=== PATIENT | male | born 1940 | race Caucasian/White ===

== ENCOUNTER 2017-10-12 09:29 | Inpatient (IN) | payer MEDICARE, OTHER ==
[2017-10-12] MEDS ORDERED: Ketorolac INJ* 30 MG/ML 1 ML VIAL IV PUSH ONE (10:19)
[2017-10-12] MEDS ORDERED: Morphine INJ* 4 MG/ML 1 ML CARPUJECT IV ONE ×2 (10:19→11:12)
[2017-10-12] MEDS ORDERED: Ondansetron INJ* 2 MG/ML VIAL ONE (10:23)
--- NOTE | 2017-10-12 10:26 | RAD ---
Indication: LEFT hip pain without recent injury. Prosthetic LEFT hip. Remote traumatic injury. Comparison: September 11, 2011 CT. Technique: AP pelvis and AP and frog-leg lateral views LEFT hip. Report: The LEFT hip prosthesis appears normally located. No periprosthetic fracture or stigmata of loosening evident. Innumerable punctate metallic densities are noted at the level of the hip joint and surrounding soft tissues suspicious for mild debris secondary to prosthesis wear. Lumbar sacral spine degenerative spondylosis and facet joint osteoarthritis noted. Pelvic phleboliths and prostatic calcifications noted. Unremarkable soft tissue contours accounting for body habitus. IMPRESSION: Punctate metallic densities at level of the prosthetic LEFT hip and surrounding soft tissues suspicious for abnormal prosthesis wear.
[2017-10-12] MEDS ORDERED: Ondansetron INJ* 2 MG/ML VIAL IV ONE (10:32)
[2017-10-12 10:58] LABS: ABS Basophils 0 10^3/ul (0-0.2); ABS Eosinophils 0 10^3/ul (0-0.6); ABS Lymphocytes 3.6 10^3/ul (1.0-4.8); ABS Monocytes 2.1 10^3/ul (0-0.8); ABS Neutrophils 12.2 10^3/ul (1.5-7.7); ABS Nucleated RBC 0.02 10^3/ul; Eosinophil % 0.1 % (0-6); Hematocrit 38 % (42-52); Hemoglobin 12.8 g/dl (14.0-18.0); Lymphocyte % 20.3 % (25-47); Mean Corpuscular HGB Conc 34 g/dl (31-36); Mean Corpuscular Hemoglobin 31 pg (27-31); Mean Corpuscular Volume 91 fL (80-94); Mean Platelet Volume 9 um3 (7.4-10.4); Nucleated Red Blood Cells % 0.1; Platelet Count 190 10^3/ul (150-450); Red Blood Count 4.17 10^6/ul (4.0-5.4); Red Cell Distribution Width 13 % (10.5-15)
[2017-10-12 11:19] LABS: EGFR Non-African American 67.4 (>60)
[2017-10-12] MEDS ORDERED: Piperacillin/Tazobac ADVAN(*) 3.375 GM in NS 0.9% 100 ML* 100 ML IVPB ONE (11:58)
[2017-10-12] MEDS ORDERED: Vancomycin(*) 1,750 MG in NS 0.9% 250 ML* 250 ML IVPB ONE (11:58)
[2017-10-12] MEDS ORDERED: NS 0.9% 1000 ML* 1,000 ML IV ONE (12:15)
[2017-10-12] MEDS ORDERED: NS 0.9% 250 ML* 250 ML ONE (12:52)
--- NOTE | 2017-10-12 12:59 | ED ---
Edvin Hall Gabriel, scribed for Evan Schneider MD on 10/12/17 at 1020 . Lower Extremity - HPI Summary HPI Summary: This patient is a 77 year old M presenting to [facility] accompanied by his with a chief complaint of left hip pain since 09/11/17. The patient rates the pain 9/10 in severity. Symptoms aggravated by ambulation. Patient denies cough, abd pain, n/v/d, and dysuria. 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 Patients reports that two days ago he had chills and a fever of 102 two days ago with the fever recently resolving. Patient denies any liver issues. - History of Current Complaint Chief Complaint: EDExtremityLower Stated Complaint: HIP PAIN Time Seen by Provider: 10/12/17 10:09 Hx Obtained From: Patient, Family/Sec Accountant - Mechanism Of Injury: Unknown Onset of Pain: Days - 1 Onset/Duration: Still Present Severity Initially: Moderate Severity Currently: Moderate Pain Intensity: 9 Pain Scale Used: 0-10 Numeric Timing: Constant Associated Signs And Symptoms: Positive: Negative - cough, abd pain, n/v/d, and dysuria Able to Bear Weight: Yes - Allergies/Home Medications Allergies/Adverse Reactions: Allergies Allergy/AdvReac Type Severity Reaction Status Date / Time No Known Allergies Allergy Unverified 02/14/13 14:03 PMH/Surg Hx/FS Hx/Imm Hx Previously Healthy: No Endocrine/Hematology History: Denies: Hx Diabetes, Hx Thyroid Disease Cardiovascular History: Reports: Hx Hypercholesterolemia, Hx Hypertension Respiratory History: Denies: Hx Asthma, Hx Chronic Obstructive Pulmonary Disease (COPD) GI History: Reports: Hx Gastroesophageal Reflux Disease Denies: Hx Ulcer History: Reports: Hx Benign Prostatic Hyperplasia Psychiatric History: Reports: Hx Depression - Surgical History Surgery Procedure, Year, and Place: fractured hip and pelvis, pins and screws Infectious Disease History: No Infectious Disease History: Denies: Hx Hepatitis, Hx Human Immunodeficiency Virus (HIV), History Other Infectious Disease, Traveled Outside the [place] in Last 30 Days - Family History Known Family History: Positive: Hypertension - Social History Lives: With Family Alcohol Use: None Hx Substance Use: No Substance Use Type: Reports: None Hx Tobacco Use: Yes Smoking Status (MU): Former Smoker Have You Smoked in the Last Year: No Review of Systems Negative: Abdominal Pain, Vomiting, Diarrhea, Nausea Negative: dysuria Positive: Other - pain in right hip All Other Systems Reviewed And Are Negative: Yes Physical Exam - Summary Physical Exam Summary: Appearance: Patient appears jaundice with no scleral icterus, mild pain distress Skin: warm, dry, reflects adequate perfusion Head/face: normal Eyes: EOMI, AARON ENT: normal Neck: supple, non-tender Respiratory: CTA, breath sounds present Cardiovascular: RRR, pulses symmetrical Abdomen: non-tender, soft Bowel: present Musculoskeletal: patient has left hip with flexion of lateral hip pain but no pain with log roll Neuro: normal, sensory motor intact, A&Ox3 Triage Information Reviewed: Yes Vital Signs On Initial Exam: Initial Vitals Temp Pulse Resp BP Pulse Ox 97.7 F 102 18 116/64 95 10/12/17 09:30 10/12/17 09:30 10/12/17 09:30 10/12/17 09:30 10/12/17 09:30 Vital Signs Reviewed: Yes - [place] Coma Scale Coma Scale Total: 15 Diagnostics - Vital Signs Vital Signs Temp Pulse Resp BP Pulse Ox 10/12/17 09:43 90 99 10/12/17 09:41 154/70 10/12/17 09:30 97.7 F 102 18 116/64 95 - Laboratory Lab Results: Lab Results 10/12/17 10/12/17 10/12/17 Range/Units 10:40 10:40 10:40 WBC 18.0 H (3.5-10.8) 10^3/ul RBC 4.17 (4.0-5.4) 10^6/ul Hgb 12.8 L (14.0-18.0) g/dl Hct 38 L (42-52) % MCV 91 (80-94) fL MCH 31 (27-31) pg MCHC 34 (31-36) g/dl RDW 13 (10.5-15) % Plt Count 190 (150-450) 10^3/ul MPV 9 (7.4-10.4) um3 Neut % (Auto) 68.0 (38-83) % Lymph % (Auto) 20.3 L (25-47) % [place] % (Auto) 11.5 H (1-9) % Eos % (Auto) 0.1 (0-6) % Baso % (Auto) 0.1 (0-2) % Absolute Neuts (auto) 12.2 H (1.5-7.7) 10^3/ul Absolute Lymphs (auto) 3.6 (1.0-4.8) 10^3/ul Absolute Monos (auto) 2.1 H (0-0.8) 10^3/ul Absolute Eos (auto) 0 (0-0.6) 10^3/ul Absolute Basos (auto) 0 (0-0.2) 10^3/ul Absolute Nucleated RBC 0.02 10^3/ul Nucleated RBC % 0.1 Sodium 134 (133-145) mmol/L Potassium 4.0 (3.5-5.0) mmol/L Chloride 101 (101-111) mmol/L Carbon Dioxide 28 (22-32) mmol/L Anion Gap 5 (2-11) mmol/L BUN 17 (6-24) mg/dL Creatinine 1.07 (0.67-1.17) mg/dL Est GFR ( Amer) 86.6 (>60) Est GFR (Non-Af Amer) 67.4 (>60) BUN/Creatinine Ratio 15.9 (8-20) Glucose 122 H (70-100) mg/dL Lactic Acid 1.1 (0.5-2.0) mmol/L Calcium 9.8 (8.6-10.3) mg/dL Total Bilirubin 0.80 (0.2-1.0) mg/dL AST 17 (13-39) U/L ALT 15 (7-52) U/L Alkaline Phosphatase 73 (34-104) U/L C-Reactive Protein 186.60 H (< 5.00) mg/L Total Protein 7.1 (6.4-8.9) g/dL Albumin 3.7 (3.2-5.2) g/dL Globulin 3.4 (2-4) g/dL Albumin/Globulin Ratio 1.1 (1-3) Lipase 22 (11.0-82.0) U/L Result Diagrams: 10/12/17 10:40 10/12/17 10:40 Lab Statement: Any lab studies that have been ordered have been reviewed, and results considered in the medical decision making process. - Radiology Hip/Pelvis Xray Radiology Interpretation Completed By: Radiologist - Punctate metallic densities at level of the prosthetic LEFT hip and surrounding soft tissues suspicious for abnormal prosthesis wear. ED physician has reviewed this radiology report. Re-Evaluation - Re-Evaluation First Eval Change: Unchanged - persistent pain with any attempted movement despite several rounds of pain meds. Lower Extremity Course/Dx - Course Course Of Treatment: Pt with atraumatic pain L hip (with prosthesis). High WBC and CRP. Possible septic prosthetic joint. D/W Ortho -- he would like IR to aspirate. D/W interventional radiologist who will attempt aspiration under US guidance. Nl lactate. No fever. Prophylactic abx. No abnl of vitals currently. IVF and abx. Admit for further to hospitalist service. - Diagnoses Provider Diagnoses: Left hip pain, Septic arthritis of hip, Infected prosthetic hip - Critical Care Time Critical Care Time: 30-74 min - excludes separately billable procedures. Includes complex medical decision making and multiple consults. Discharge - Discharge Plan Condition: Guarded Disposition: ADMITTED TO [facility] Referrals: Fred Esquivel MD [Primary Care Provider] - The documentation as recorded by the Edvin parra Gabriel accurately reflects the service I personally performed and the decisions made by , Evan Schneider MD.
--- NOTE | 2017-10-12 13:00 | RAD ---
Indication: LEFT hip and femur pain. Prosthesis. Comparison: LEFT hip exam of the same date. Technique: AP and lateral views LEFT femur. Report: LEFT total hip prosthesis in place with small metallic particles at the level of the joint and surrounding soft tissues as described in the dedicated hip exam of the same date. No periprosthetic fracture or stigmata of loosening of the femoral stem. No suspicious osseous lesion evident. Mild osteoarthritis at the knee. Peripheral vascular calcifications. IMPRESSION: Negative for LEFT femur fracture or suspicious focal osseous lesion. As noted in the dedicated hip exam of the same date punctate metallic particles at the hip joint and surrounding soft tissues favor degeneration of the prosthesis.
[2017-10-12] MEDS ORDERED: Vancomycin(*) 1,750 MG in NS 0.9% 500 ML* 500 ML IVPB ONE (13:30)
--- NOTE | 2017-10-12 15:55 | RAD ---
CPT II Codes: 6100F INDICATION: Left hip pain COMPARISON: Same day radiograph of the left hip The benefits and risks of procedure explained to the patient and the patient signed informed consent. Multiple images of the left prosthetic hip were obtained. There is no large discernible fluid collection within the prostatic left hip capsule. The patient was prepped and draped in the usual sterile fashion. The skin and tissue overlying the fluid collection were anesthetized with 1% lidocaine. Percutaneously, a needle was advanced until it abutted the prosthetic femoral neck. No fluid could be aspirated. Approximately 5 mL of normal saline was gently injected into the joint space and rapidly aspirated back out. A total of 3 mL of turbid fluid was recovered. The needle was removed and the specimen was labeled and packaged and sent to the laboratory. The post procedure ultrasound demonstrates no evidence for hematoma. The patient tolerated procedure well without incident. IMPRESSION: 1. No sonographic evidence of a left sided joint effusion. 2. After needle aspiration yielded no joint fluid, sterile normal saline was injected in an approximately 3 mL's was rapidly aspirated back out. This mildly turbid fluid was sent to the laboratory for analysis.
[2017-10-12] MEDS ORDERED: Al Hydrox/Mg Hydrox/Simet LIQ* 30 ML UDC PO PRN (16:26)
[2017-10-12] MEDS ORDERED: Ondansetron INJ* 2 MG/ML VIAL IV PRN (16:26)
[2017-10-12] MEDS ORDERED: Acetaminophen TAB* 325 MG PO PRN (16:26)
[2017-10-12] MEDS: HYDROcodone/ACETAMIN 5-325 MG* 1 TAB PO PRN ×2 (17:09→21:54)
--- NOTE | 2017-10-12 17:15 | RAD ---
INDICATION: Fever. COMPARISON: There are no prior studies available for comparison. TECHNIQUE: AP and lateral views of the chest were obtained. FINDINGS: The heart is within normal limits in size. Mediastinal and hilar contours appear within normal limits. There are minimal linear densities at the left lung base most consistent with atelectasis. The lungs are otherwise clear. No pleural effusion is seen. IMPRESSION: NO EVIDENCE FOR ACUTE FINDING.
[2017-10-12] MEDS: cefTRIAXone(*) 2 GM in NS 0.9% 100 ML* 100 ML IVPB SCH (17:30)
[2017-10-12] MEDS: NS 0.9% 1000 ML* 1,000 ML IV SCH (18:13)
[2017-10-12] MEDS ORDERED: Vancomycin per Pharmacy* NOTE FOLLOW UP PRN (20:34)
[2017-10-12] MEDS: Omeprazole CAP* 20 MG PO SCH (20:42)
[2017-10-12] MEDS: Atorvastatin* 80 MG TAB PO SCH (20:42)
[2017-10-12] MEDS ORDERED: Heparin VIAL(*) 5000 UNITS/ML VIAL (FIVE THOUSAND) SUBCUT SCH (22:00)
--- NOTE | 2017-10-12 22:17 | HP ---
CC: Dr. Esquivel * HISTORY AND PHYSICAL: DATE OF ADMISSION: 10/12/17 PROVIDER: Kavitha Hussein NP ATTENDING PHYSICIAN WHILE IN THE HOSPITAL: Dr. Serge Blanchard * (report dictated by Kavitha Hussein NP). CHIEF COMPLAINT: 1. Fever. 2. Left hip pain. HISTORY OF PRESENT ILLNESS: Mr. Rodriguez is a 77-year-old male that presented to the emergency room with a history of depression, hypertension, GERD, and high cholesterol. He also is status post left hip replacement in 2010 and cardiac stent was placed in 2008 and he has a history of back surgeries in 1979. He came in with a two day history of fever and progressively increasing left hip pain with body aches. He reports that fevers at home were between 101 and 102. He states that on Monday, he was feeling fine. He had celebrated [place] with his family without any problems. On Monday night, he came home and had a spell where he was shaking and had chills. He developed left hip pain Monday night and over Monday and Monday, the left hip pain progressively got worse. Initially, he is an active male. He is able to walk without any assistance. On Monday, he was using a cane to walk and by Monday, he was walking with a wheeled walker due to the increased left hip. He does state that on Monday, he did fall on a padded carpet. Denied any injuries. Denied loss of consciousness. He does report that the left hip pain is an 8 on a scale of 10. It is worse with walking and movement. He states that the pain is sharp. He denies any other complaints. He denies nausea, vomiting, or diarrhea. Denies any abdominal pain. Denies cough or shortness of breath. He does report fever and chills. He reports that he has chronic problems with urination and does report some increased frequency, but denies any other symptoms. He denies any sensory loss or weakness. Denies any visual complaints. He does have chronic difficulty swallowing at times where he feels food get stuck in his throat. He has had EGDs in the past which he says that he had a stricture cut and has not followed up since. He denies any rashes or lesions. Denies any recent sick contacts. No fevers were documented in the emergency room. We were asked to evaluate the patient for admission due to fever, left hip pain, and leukocytosis. In the emergency room, routine lab work was drawn and he was found to have leukocytosis with a white count of 18,000. He did receive Toradol 30 mg and morphine 4 mg x2 for pain without any relief. He also was started on vancomycin. His first dose was 1750 mg and he also received a dose of Zosyn in the emergency room. Blood cultures and urine are pending. PAST MEDICAL HISTORY: Significant for: 1. High cholesterol. 2. Depression. 3. Hypertension. 4. GERD. 5. He has a history of shingles, which he said was in the groin area several years ago. 6. Prostate enlargement. PAST SURGICAL HISTORY: 1. Back surgery in 1979. 2. Left hip surgery in 2010. 3. Cardiac stents in 2008. MEDICATIONS: Home medications include: 1. Ramipril 5 mg. 2. Aspirin 81 mg p.o. daily. 3. Lipitor 80 mg p.o. daily. 4. Omeprazole 20 mg b.i.d. 5. Multivitamin. 7. Magnesium, calcium and zinc one tablet p.o. daily. 8. Glucosamine 2000 mg p.o. b.i.d. 9. Gabapentin 600 mg p.o. daily. 10. Flomax 0.4 p.o. daily. 11. Proscar 5 mg p.o. daily. 12. Sertraline 50 mg p.o. daily. FAMILY HISTORY: Father and three brothers and his sister are all with cardiac disease. Denies any family history of diabetes. Cancer, mother had stomach cancer. SOCIAL HISTORY: The patient is a former smoker. He quit approximately 30 years ago. Prior to that, he smoked half a pack to pack a day for approximately 30 years. He denies any alcohol use. Denies drug use. He is retired. He currently lives with his pit shoveler of 39 years, Barbara and surrogate decision maker will be his pit shoveler, Barbara Mathew and her phone number is [phone]. REVIEW OF SYSTEMS: There is no documented fever. He denies any significant weight change. There has been no double vision, no ear discharge. Denies any rhinorrhea. Denies sore throat. Denies any chest pain. Denies any shortness of breath, cough, or congestion. Denies any nausea, vomiting, or diarrhea. Denies any abdominal pain. He does report chronic issue with urinary frequency and difficulty urinating. Denies any seizures. Denies loss of consciousness. Denies any pruritus or skin ulcerations. He does report that he does have difficulties swallowing that is a chronic problem for him. He has had EGDs in the past and states that they did cut his throat to improve his swallowing. He has not had a followup since. He does report that he has had some muscle and joint aches over the past two days. Denies any recent issues with anxiety or depression. Review of 14 systems was completed and all others were negative. PHYSICAL EXAMINATION GENERAL: At this time, Mr. Rodriguez is a 77-year-old male patient, he appears comfortable, lying in the bed. He does not appear to be in any acute distress. VITAL SIGNS: Blood pressure was 151/71, pulse 91, respirations 18, O2 sat 98% on room air, temperature oral 98.8. HEENT: Head is atraumatic, normocephalic. Eyes: EOMs are intact. Sclerae are anicteric, not pale. Oral mucosa appear moist. NECK: Supple. LUNGS: Clear to auscultation bilaterally. CARDIAC: Heart sounds, S1, S2 is regular rate and rhythm. There are no murmurs , rubs, or gallops. ABDOMEN: Soft and nontender. Bowel sounds are present x4. EXTREMITIES: Pulses are +2 throughout. He is moving all four extremities with a strength 5/5. Left hip was palpated. There is no point tenderness or SI joint tenderness noted to the left hip. Femoral pulses positive. NEUROLOGIC: He is awake and alert and oriented x3. Speech is clear. There is no focal deficits. SKIN: Intact. There are no rashes or lesions noted. DIAGNOSTIC STUDIES/LAB DATA: WBCs are 18.0, hemoglobin is 12.8, hematocrit is 38, platelet count was 190. Sodium was 134, potassium 4.0, chloride 101, carbon dioxide 28, BUN is 17, creatinine 1.07, glucose was 122, lactic acid was 1.1, calcium 9.8. AST 17, ALT 15, alkaline phos was 73. C-reactive protein was 186.60 and lipase was 22. Chest x-ray was done and is pending at this time. Left femur x-ray, negative for left femur fracture or suspicious focal osseous lesion. Hip and pelvis x- ray, punctate metallic densities at the level of the prosthetic left hip and surrounding soft tissues suspicious for abnormal prosthesis wear. Left hip prosthesis appears normally located and there is no periprosthetic fracture or stigmata of loosening evident. He had a joint aspiration of the left hip joint. Aspirate cultures are pending at this time. ASSESSMENT AND PLAN: Mr. Rodriguez is a 77-year-old male that presented to the emergency room today after two-day history of increased and progressively worsening left hip pain accompanied by fever. We were asked to evaluate because of the fever and increased left hip pain. He will be admitted to the hospital for: 1. Leukocytosis. I suspect that this could be related to a left hip joint infection. At this time, joint aspirate cultures are pending. We will also rule out other sources of infection. A chest x-ray is pending. I have ordered a flu swab. Blood cultures are also pending. Urine culture is pending. 2. Suspect septic joint. At this time, joint aspiration from the left hip culture is pending. We will monitor his vital signs. We will continue to trend his CBC and monitor his white count. I will start him on ceftriaxone 2 g IV q.[address] hours[address] I [address] also place him on vancomycin as per pharmacy dosing. At this time, I think it is reasonable to also check a Lyme titer to rule out Lyme' s disease. Orthopedic consult was initiated, spoke to Celina Belle. Will wait for joint fluid culture. 3. Hypertension. We will continue him on his ramipril. 4. Hyperlipidemia. We will continue him on his Lipitor 80 mg. 5. Gastroesophageal reflux disease. We will continue him on omeprazole 20 mg p.o. b.i.d. 6. Enlarged prostate. We will continue him on his Proscar and Flomax. 7. Depression. We will continue him on his Zoloft. 8. DVT prophylaxis. He will be placed on heparin subcu. 9. Code status. He is a full code. 10. Fluids, electrolytes, and nutrition. We will place him on a heart healthy diet. TIME SPENT: Time spent on this admission was approximately 60 minutes, greater than half the time was spent [id number] with the patient obtaining history and physical, the other half of the time was spent going over the plan of care and implementing the plan of care. I have discussed this plan of care with my attending, Dr. Serge Blanchard and he is in agreement with my plan. KAVITHA HUSSEIN, ROOMING HOUSE OPERATOR [id number]/[facility] #: [id number] KENRICK
--- NOTE | 2017-10-13 01:25 | CONS ---
CONSULTATION REPORT: DATE OF CONSULT: 10/12/17 PROVIDER: Dr. Fred Painter. HISTORY OF PRESENT ILLNESS: The patient is a 77-year-old male who present to [facility] ED on 10/12/17 accompanied by his with complaint of left hip pain since 09/11/17. At its most severe, pain is a 9/10 in severity, though currently he is feeling quite comfortable when he does not move, sometimes aggravated by passive movement of his left lower extremity as well as ambulation. The patient denies any cough, chest pain, shortness of breath, abdominal upset, nausea, vomiting, diarrhea, dysuria, skin lesions. 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 In the past 4 days, the patient has developed such severe pain he has needed to use a crutch to walk and he did use a walker to come into the emergency room today. He has had chills and a fever as high as 102. His previous hip surgery was done by Dr. Mckay at [facility]. The patient has no sick contacts. PAST MEDICAL HISTORY: Hyperlipidemia, hypertension, GERD, BPH, depression. PAST SURGICAL HISTORY: Includes fractured hip and pelvis with hinge and screws. SOCIAL HISTORY: The patient does not use alcohol. He does not use drugs. He is a former smoker. REVIEW OF SYSTEMS: General: History of fevers, chills. HEENT: Denies headache, changes in vision, changes in hearing. Cardiac: Denies chest pain, irregular heart beats, history of heart attack. Respiratory: Denies shortness of breath, cough. GI: Denies nausea, vomiting, diarrhea, or abdominal pain. : Denies dysuria. Musculoskeletal: Confirms left hip pain. Denies any other musculoskeletal pains. Neuro: Denies any numbness or tingling of left lower extremity. Skin: No open lesions, wounds, or bruising. PHYSICAL EXAM: General: The patient is in no acute distress. He is calm and cooperative. Vital Signs: Temp currently 98.8, pulse 91, respiratory rate 18, oxygen saturation 98, blood pressure 151/71. HEENT: Normocephalic, atraumatic. Extraocular movements are intact. Hearing is grossly normal. Respiratory: Lungs are clear to auscultation bilaterally. Cardiovascular: S1 , S2. Abdomen: Soft, nontender. No obvious masses. Musculoskeletal: The patient denies pain with passive or active flexion and extension of the hip. He has no pain with log roll. He confirms pain into the left lateral hip with both internal and external rotation. He has no lumbar tenderness. Neuro: Dorsiflexion and plantarflexion intact. Sensation intact distally. Skin: No open lesions. No bruising. DIAGNOSTIC STUDIES/LAB DATA: White blood cell count 18.0, hemoglobin 12.8, hematocrit 38. Lactic acid 1.1, CRP 186.6. Left hip x-ray showed punctate metallic densities at the level of prosthetic left hip and surrounding soft tissue suspicious for abnormal prosthesis wear. ASSESSMENT: Atraumatic left hip pain with prosthesis, concern for septic joint. PLAN: Aspiration under ultrasound guidance was a dry tap, saline was infused and will await culture results. Patient will be NPO and Dr. Painter will evaluate for need for surgical intervention 10/13/17. ADRIANNA LOWE [id number]/[place] #: [id number] MTDCintia
[2017-10-13 01:37] LABS: Urine Appearance Cloudy; Urine Blood 2+ (Negative); Urine Color Amber; Urine Ketones Negative (Negative); Urine Protein 2+(100 mg/dL) (Negative); Urine Specific Gravity 1.023 (1.010-1.030); Urine Urobilinogen Negative (Negative)
[2017-10-13] MEDS: Heparin VIAL(*) 5000 UNITS/ML VIAL (FIVE THOUSAND) SUBCUT SCH ×3 (05:30→22:06)
[2017-10-13] MEDS ORDERED: Vancomycin(*) 1,000 MG in D5W 250 ML BAG* 250 ML IVPB SCH (06:00)
[2017-10-13 06:15] LABS: ABS Basophils 0.1 10^3/ul (0-0.2); ABS Eosinophils 0.1 10^3/ul (0-0.6); ABS Lymphocytes 3.1 10^3/ul (1.0-4.8); ABS Monocytes 1.3 10^3/ul (0-0.8); ABS Neutrophils 9.5 10^3/ul (1.5-7.7); ABS Nucleated RBC 0 10^3/ul; Eosinophil % 0.7 % (0-6); Hematocrit 32 % (42-52); Hemoglobin 10.8 g/dl (14.0-18.0); Lymphocyte % 21.9 % (25-47); Mean Corpuscular HGB Conc 33 g/dl (31-36); Mean Corpuscular Hemoglobin 31 pg (27-31); Mean Corpuscular Volume 91 fL (80-94); Mean Platelet Volume 9 um3 (7.4-10.4); Nucleated Red Blood Cells % 0; Platelet Count 153 10^3/ul (150-450); Red Blood Count 3.55 10^6/ul (4.0-5.4); Red Cell Distribution Width 13 % (10.5-15); White Blood Count 14.1 10^3/ul (3.5-10.8)
[2017-10-13 06:32] LABS: EGFR Non-African American 67.4 (>60)
[2017-10-13] MEDS: Tamsulosin CAP* 0.4 MG PO SCH (10:19)
[2017-10-13] MEDS: Ramipril CAP* 5 MG PO SCH (10:19)
[2017-10-13] MEDS: Omeprazole CAP* 20 MG PO SCH ×2 (10:19→21:11)
[2017-10-13] MEDS: Atorvastatin* 80 MG TAB PO SCH (10:19)
[2017-10-13] MEDS: Sertraline* 50 MG TAB PO SCH (10:19)
[2017-10-13] MEDS: Finasteride TAB* 5 MG PO SCH (10:19)
--- NOTE | 2017-10-13 10:40 | PN ---
Progress Note - Progress Note Date of Service: 10/13/17 SOAP: Subjective: 77 y/o male s/p L hip traumatic CRISTAL 2010 with hip pain. Awaiting records from [facility] for possible poly exchange, washout due to deterioration of previous CRISTAL. Patient states pain decreased, better with lying still, however increased with movements. VSS afebrile overnight. hungry. Objective: General- Well appearing, NAD AO, resting in bed comfortably MSK- pain with flex L hip to >30 degrees, good muscle tone throughout L LE, PT 2+ b/l, neg homans b/l, + DF/PF, sensation grossly intact, no tenderness with moderate palpation around hip. Vital Signs Temp 99.1 F 10/13/17 07:31 Pulse 73 10/13/17 07:31 Resp 18 10/13/17 07:31 BP 131/58 10/13/17 07:31 Pulse Ox 94 10/13/17 07:31 Intake & Output 10/12/17 10/13/17 10/13/17 18:59 06:59 18:59 Intake Total 1570 787 200 Output Total 700 800 Balance 1570 87 -600 Weight 87.679 kg Intake: IV Fluids 1100 787 ABX - VANCOMYCIN 337 normal saline 450 Oral 470 0 200 Output: Urine 700 800 Assessment: 77 y/o male s/p L hip traumatic CRISTAL 2010 with hip pain, likely hardware malfunction. Plan: - Obtain records from [facility]- once available can determine if products are in- house or must be obtained. Surgery 08/[address] Mckay. - Heart healthy diet - Continue NWB L LE - Discuss with Dr. Mendez Active Medications Generic Name Dose Route Start Last Admin Trade Name Freq PRN Reason Stop Dose Admin Acetaminophen 650 mg 10/12/17 16:26 Tylenol Tab* PO Q4H PRN FEVER/PAIN Hydrocodone Bitart/Acetaminophen 1 tab 10/12/17 16:46 10/12/17 21:54 Lucas 5-325 Tab* PO 1 tab Q4H PRN Administration PAIN Al Hydrox/Mg Hydrox/Simethicone 30 ml 10/12/17 16:26 Maalox Plus* PO Q6H PRN INDIGESTION Atorvastatin Calcium 80 mg 10/12/17 21:00 10/13/17 10:19 Lipitor* PO 80 mg DAILY NAILA Administration Finasteride 5 mg 10/13/17 09:00 10/13/17 10:19 Proscar Tab* PO 5 mg DAILY NAILA Administration Heparin Sodium (Porcine) 5,000 units 10/12/17 22:14 10/13/17 13:22 Heparin Vial(*) SUBCUT Not Given Q8HR NAILA Sodium Chloride 1,000 mls @ 75 mls/hr 10/12/17 16:30 10/12/17 18:13 Ns 0.9% 1000 Ml* IV 75 mls/hr PER RATE NAILA Administration Ceftriaxone Sodium 2 gm/ 100 mls @ 200 mls/hr 10/12/17 17:00 10/12/17 17:30 Sodium Chloride IVPB 200 mls/hr Q24H NAILA Administration Vancomycin HCl 1,000 mg/ 250 mls @ 166.667 mls/hr 10/13/17 06:00 10/13/17 05: 54 Dextrose IVPB 166.667 mls/hr Q12H NAILA Administration Omeprazole 20 mg 10/12/17 21:00 10/13/17 10:19 Prilosec Cap* PO 20 mg BID NAILA Administration Ondansetron HCl 4 mg 10/12/17 16:26 Zofran Inj* IV Q4H PRN NAUSEA/VOMITING Pharmacy Consult 1 note 10/12/17 20:34 Vancomycin Per Pharmacy* FOLLOW UP . PRN PER PROTOCOL Pharmacy Profile Note 1 note 10/14/17 05:30 Vancomycin Trough Check FOLLOW UP 10/14/17 05:31 0530 ONE Ramipril 5 mg 10/13/17 09:00 10/13/17 10:19 Altace Cap* PO 5 mg DAILY NAILA Administration Sertraline HCl 50 mg 10/13/17 09:00 10/13/17 10:19 Zoloft* PO 50 mg DAILY NAILA Administration Tamsulosin HCl 0.4 mg 10/13/17 09:00 10/13/17 10:19 Flomax Cap* PO 0.4 mg DAILY NAILA Administration <Karen Zhou - Last Filed: 10/13/17 14:34> - Progress Note SOAP: Subjective: Patient continues to describe intermittent left hip pain. He has not ambulated in days to test comfort level with ambulation. Hip joint aspiration done yesterday by IR, but sample has no gram stain or culture to this point. I called the microbiology lab and they will have gram stain in an hour. Echo was negative for vegetations. We obtained op note from 2010 from [facility] that details a complex left CRISTAL for fracture with a liner cemented into a trabecular metal cup with screws. This would significantly complicate liner exchange, which is a typical component of I &D of acute prosthetic joint infections. Objective: NAD. Comfortabl-appearing. LLE: warm left hip, NVID, PROM 100 flexion, 15 of external and internal rotation. Only mild intermittent pain with PROM. Patient points to lateral hip area as location of pain. Microbiology 10/12/17 10:40 Blood Venous Aerobic Blood Culture - Preliminary 10/12/17 10:40 Blood Venous Anaerobic Blood Culture - Preliminary Strep Agalactiae - (Group B) Selected Entries 10/13/17 10/13/17 17:43 19:35 Temperature 101.4 F 98.4 F Pulse Rate 81 Respiratory 18 Rate Blood Pressure 120/58 (mmHg) O2 Sat by Pulse 91 Oximetry Laboratory Tests 10/12/17 10/13/17 10/13/17 10:40 01:15 06:07 WBC 18.0 H 14.1 H Urine Nitrate Negative Ur Leukocyte Esterase 3+ H Urine WBC (Auto) 3+(>20/hpf) H Assessment: HD 2 left hip pain, bacteremia with gram negative organism, presumptive L CRISTAL infection UTI History 2010 complex left CRISTAL for fracture with a cemented liner Plan: - Await gram stain and culture results of aspirate from yesterday - NPO p midnight for possible I&D tomorrow morning - Will discuss with colleagues possibility of I&D without liner exchange given the cemented liner. If it is decided that liner must be exchanged we would likely transfer to [place] - Repeat UA and culture tomorrow morning <Darrin Mendez - Last Filed: 10/13/17 22:09>
--- NOTE | 2017-10-13 11:34 | PN ---
Subjective Date of Service: 10/13/17 Interval History: Mr. Rodriguez states that he is feeling better today. States that he is able to raise his leg higher than yesterday put does still reproduce pain with range of motion. Denies fever or chills, Denies nausea, vomiting or diarrhea. Denies abd pain. Denies urinary symptoms. Denies shortness of breath or cough. Family History: Unchanged from Admission Social History: Unchanged from Admission Past Medical History: Unchanged from Admission Objective Active Medications: Acetaminophen (Tylenol Tab*) 650 mg PO Q4H PRN PRN Reason: FEVER/PAIN Hydrocodone Bitart/Acetaminophen ([place] 5-325 Tab*) 1 tab PO Q4H PRN PRN Reason: PAIN Last Admin: 10/12/17 21:54 Dose: 1 tab Al Hydrox/Mg Hydrox/Simethicone (Maalox Plus*) 30 ml PO Q6H PRN PRN Reason: INDIGESTION Atorvastatin Calcium (Lipitor*) 80 mg PO DAILY [facility] Last Admin: 10/13/17 10:19 Dose: 80 mg Finasteride (Proscar Tab*) 5 mg PO DAILY [facility] Last Admin: 10/13/17 10:19 Dose: 5 mg Heparin Sodium (Porcine) (Heparin Vial(*)) 5,000 units SUBCUT Q8HR [facility] Last Admin: 10/13/17 05:30 Dose: Not Given Sodium Chloride (Ns 0.9% 1000 Ml*) 1,000 mls @ 75 mls/hr IV PER RATE [facility] Last Admin: 10/12/17 18:13 Dose: 75 mls/hr Ceftriaxone Sodium 2 gm/ (Sodium Chloride) 100 mls @ 200 mls/hr IVPB Q24H [facility] Last Admin: 10/12/17 17:30 Dose: 200 mls/hr Vancomycin HCl 1,000 mg/ (Dextrose) 250 mls @ 166.667 mls/hr IVPB Q12H [facility] Last Admin: 10/13/17 05:54 Dose: 166.667 mls/hr Omeprazole (Prilosec Cap*) 20 mg PO BID [facility] Last Admin: 10/13/17 10:19 Dose: 20 mg Ondansetron HCl (Zofran Inj*) 4 mg IV Q4H PRN PRN Reason: NAUSEA/VOMITING Pharmacy Consult (Vancomycin Per Pharmacy*) 1 note FOLLOW UP . PRN PRN Reason: PER PROTOCOL Pharmacy Profile Note (Vancomycin Trough Check) 1 note FOLLOW UP 0530 ONE Stop: 10/14/17 05:31 Ramipril (Altace Cap*) 5 mg PO DAILY [facility] Last Admin: 10/13/17 10:19 Dose: 5 mg Sertraline HCl (Zoloft*) 50 mg PO DAILY [facility] Last Admin: 10/13/17 10:19 Dose: 50 mg Tamsulosin HCl (Flomax Cap*) 0.4 mg PO DAILY [facility] Last Admin: 10/13/17 10:19 Dose: 0.4 mg Vital Signs - 8 hr 10/13/17 10/13/17 03:30 07:31 Temperature 98.7 F 99.1 F Pulse Rate 82 73 Respiratory 13 18 Rate Blood Pressure 119/51 131/58 (mmHg) O2 Sat by Pulse 93 94 Oximetry Oxygen Devices in Use Now: None Appearance: awake, alert appears comfortable resting in bed Eyes: No Scleral Icterus, PERRLA Ears/Nose/Mouth/Throat: NL Teeth, Lips, Gums, Clear Oropharnyx, Mucous Membranes Moist Neck: NL Appearance and Movements; NL JVP, Trachea Midline Respiratory: Symmetrical Chest Expansion and Respiratory Effort, Clear to Auscultation Cardiovascular: NL Sounds; No Murmurs; No JVD, RRR, No Edema Abdominal: NL Sounds; No Tenderness; No Distention Extremities: No Edema, No Clubbing, Cyanosis Skin: No Rash or Ulcers Neurological: Alert and Oriented x 3, NL Sensation, - - pedal pulses +2 bilaterally Result Diagrams: 10/13/17 06:07 10/13/17 06:07 Additional Lab and Data: Lab Results 10/12/17 10/12/17 10/12/17 Range/Units 10:40 10:40 10:40 WBC 18.0 H (3.5-10.8) 10^3/ul RBC 4.17 (4.0-5.4) 10^6/ul Hgb 12.8 L (14.0-18.0) g/dl Hct 38 L (42-52) % MCV 91 (80-94) fL MCH 31 (27-31) pg MCHC 34 (31-36) g/dl RDW 13 (10.5-15) % Plt Count 190 (150-450) 10^3/ul MPV 9 (7.4-10.4) um3 Neut % (Auto) 68.0 (38-83) % Lymph % (Auto) 20.3 L (25-47) % Clinch % (Auto) 11.5 H (1-9) % Eos % (Auto) 0.1 (0-6) % Baso % (Auto) 0.1 (0-2) % Absolute Neuts (auto) 12.2 H (1.5-7.7) 10^3/ul Absolute Lymphs (auto) 3.6 (1.0-4.8) 10^3/ul Absolute Monos (auto) 2.1 H (0-0.8) 10^3/ul Absolute Eos (auto) 0 (0-0.6) 10^3/ul Absolute Basos (auto) 0 (0-0.2) 10^3/ul Absolute Nucleated RBC 0.02 10^3/ul Nucleated RBC % 0.1 Sodium 134 (133-145) mmol/L Potassium 4.0 (3.5-5.0) mmol/L Chloride 101 (101-111) mmol/L Carbon Dioxide 28 (22-32) mmol/L Anion Gap 5 (2-11) mmol/L BUN 17 (6-24) mg/dL Creatinine 1.07 (0.67-1.17) mg/dL Est GFR ( Amer) 86.6 (>60) Est GFR (Non-Af Amer) 67.4 (>60) BUN/Creatinine Ratio 15.9 (8-20) Glucose 122 H (70-100) mg/dL Lactic Acid 1.1 (0.5-2.0) mmol/L Calcium 9.8 (8.6-10.3) mg/dL Total Bilirubin 0.80 (0.2-1.0) mg/dL AST 17 (13-39) U/L ALT 15 (7-52) U/L Alkaline Phosphatase 73 (34-104) U/L C-Reactive Protein 186.60 H (< 5.00) mg/L Total Protein 7.1 (6.4-8.9) g/dL Albumin 3.7 (3.2-5.2) g/dL Globulin 3.4 (2-4) g/dL Albumin/Globulin Ratio 1.1 (1-3) Lipase 22 (11.0-82.0) U/L Microbiology and Other Data: Microbiology 10/12/17 16:45 Influenza Types A,B Antigen (JOAN) - Final Nasal Specimen received for Influenza A/B Molecular testing Assess/Plan/Problems-Billing Assessment: This is a 77 y.o male with a 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 Presented to the emergency room after a 2 day history of fevers and progressively worsening left hip pain and decreased ability to ambulate. - Patient Problems (1) Septic joint Comment: Will continue vancomycin and ceftriaxone will trend CBC, repeat blood cultures in AM, repeat CRP Orthopedic is consulting on patient possible to OR today for joint washing and plastic replacement. Consult from ID pending Controll pain as needed (2) Hypertension Code(s): I10 - ESSENTIAL (PRIMARY) HYPERTENSION SNOMED Code(s): 77279525 Comment: Continue on Ramipril monitor vital signs Heart healthy diet (3) Leucocytosis Code(s): D72.829 - ELEVATED WHITE BLOOD CELL COUNT, UNSPECIFIED SNOMED Code(s) : 501937781 Comment: Stable Suspect this is related to left hip septic Joint Will continue on Ceftriaxone to cover group B strep Will stop Vancomycin Will trend CBC- WBC are improving (4) Depression Code(s): F32.9 - MAJOR DEPRESSIVE DISORDER, SINGLE EPISODE, UNSPECIFIED SNOMED Code(s): 67243213 Comment: Will continue on Zoloft provide supportive care as needed (5) DVT prophylaxis Current Visit: Yes Status: Acute Code(s): UJS1639 - SNOMED Code(s): 002005323 Comment: Heparin Subq ambulate as tolerated
[2017-10-13] MEDS: HYDROcodone/ACETAMIN 5-325 MG* 1 TAB PO PRN ×2 (15:05→19:37)
--- NOTE | 2017-10-13 17:18 | ECHO ---
Patient: GABRIEL DELGADO [facility] Rec#: [id number] : 1940 Date: 10/13/2017 Age: 77y Height: 177.8 cm / 70.0 in Weight: 87.54 kg / 192.9 lbs Sex: M BSA: 2.06 Room#: [facility] Admit Date#: 10/12/2017 Type: Inpatient Referring: Kavitha Hussein Reading: Kallie Al MD Music Educator: Princess Hoang RDCS CC: Fred Esquivel MD Transthoracic Echocardiogram Indication: Fever, positive blood cultures for Strep Agalactiae BP: 131/58 HR: 87 Rhythm: NSR Findings History: + BC strep Agalactiae 10/12/17, CAD s/p stents, HTN, HLD, GERD, BPH, tobacco use Technical Comments: The study quality is fair. The study is technically limited due to poor parasternal windows. Completed at 1700. Left Ventricle: The left ventricular chamber size is normal. Mild to moderate concentric left ventricular hypertrophy is observed. Global left ventricular wall motion and contractility are within normal limits. There is normal left ventricular systolic function. The estimated ejection fraction is 55-60%. Normal left ventricular diastolic filling is observed. Left Atrium: The left atrial chamber size is normal. Right Ventricle: Moderator Band present. The right ventricle is mildly dilated. The right ventricular global systolic function is normal. Right Atrium: The right atrium is mildly dilated. Aortic Valve: The aortic valve is trileaflet. The aortic valve leaflets are mildly thickened. There is a trace of aortic regurgitation. There is no evidence of aortic stenosis. There is no aortic vegetation present. Mitral Valve: The mitral valve leaflets are mildly thickened. There is a trace of mitral regurgitation. There is no evidence of mitral stenosis. No vegetation is observed on the mitral valve. Tricuspid Valve: The tricuspid valve leaflets are normal. There is trace to mild tricuspid regurgitation. The right ventricular systolic pressure is estimated at 28 mmHg. There is evidence that pulmonary hypertension may be underestimated. There is no tricuspid stenosis. No vegetation is observed on the tricuspid valve. Pulmonic Valve: The pulmonic valve structure is not well visualized. There is a trace pulmonic regurgitation. There is no pulmonic stenosis. Pericardium: There is no significant pericardial effusion. A pericardial fat pad is visualized. Aorta: There is mild dilatation of the ascending aorta. There is no dilatation of the aortic arch. The aortic root is normal in size. Pulmonary Artery: The main pulmonary artery is not well visualized. Venous: The inferior vena cava appears normal in size. There is a greater than 50% respiratory change in the inferior vena cava dimension. Conclusions Mild to moderate concentric left ventricular hypertrophy is observed. Global left ventricular wall motion and contractility are within normal limits. The estimated ejection fraction is 55-60%. The right ventricular global systolic function is normal. There is a trace of aortic regurgitation. There is a trace of mitral regurgitation. There is trace to mild tricuspid regurgitation. The right ventricular systolic pressure is estimated at 28 mmHg. No vegetations noted. No prior echo to compare. Measurements Name Value Normal Range RVIDd (AP) 2D 3.2 cm (0.9 - 2.6) RVDdMajor (2D) 4.8 cm (2.2 - 4.4) RAd ISD 4CH 5.2 cm (3.4 - 4.9) RA (A4C)W 4.1 cm (2.9 - 4.6) IVSd (2D) 1.3 cm (0.6 - 1) LVPWd (2D) 1.3 cm (0.6 - 1) LVIDd (2D) 3.8 cm (3.6 - 5.4) LVIDs (2D) 2.19 cm - LV FS (2D) 43 % (25 - 45) Aortic Annulus 2.2 cm (1.4 - 2.6) Ao root diameter (2D) 3.5 cm (2.1 - 3.5) Ascending Ao 3.7 cm (2.1 - 3.4) Aortic arch 2.9 cm (1.8 - 3.4) LA dimension (AP) 2D 3.4 cm (2.3 - 3.8) LAd ISD 4CH 5.5 cm (2.9 - 5.3) LA ISD 4CH W 4.2 cm (2.5 - 4.5) Name Value Normal Range LA ESV SP 4CH (A/L) 54 ml - LA ESV SP 2CH (A/L) 42 ml - LA ESV BP (A/L) 48 ml - LA ESV BP (A/L) index 23 ml/m2 - LA ESV SP 4CH (MOD) 47 ml - LA ESV SP 2CH (MOD) 39 ml - Name Value Normal Range MV E-wave Vmax 0.78 m/sec - MV deceleration time 279.3 msec - MV A-wave Vmax 0.91 m/sec - MV E:A ratio 0.85 ratio - LV septal e' Vmax 0.1 m/sec - LV lateral e' Vmax 0.11 m/sec - LV E:e' septal ratio 7.8 ratio - LV E:e' lateral ratio 7.09 ratio - Name Value Normal Range AV Vmax 1.32 m/sec - AV VTI 24.45 cm - AV peak gradient 6.97 mmHg - AV mean gradient 3.99 mmHg - LVOT Vmax 1 m/sec - LVOT VTI 19 cm - LVOT peak gradient 4.4 mmHg - LVOT mean gradient 2.21 mmHg - JOSÉ MIGUEL Vmax 0.96 m/sec - Name Value Normal Range TR Vmax 2.5 m/sec - TR peak gradient 25 mmHg - RAP 3 mmHg - RVSP 28 mmHg - IVC diameter 1.7 cm - Name Value Normal Range PV Vmax 1.09 m/sec - PV peak gradient 4.75 mmHg -
[2017-10-13] MEDS: cefTRIAXone(*) 2 GM in NS 0.9% 100 ML* 100 ML IVPB SCH (18:01)
[2017-10-13] MEDS: Morphine INJ* 2 MG/ML 1 ML SYRINGE (TWO MG - NEW SYRINGE VERSION) IV PRN (18:01)
[2017-10-13] MEDS: NS 0.9% 1000 ML* 1,000 ML IV SCH (18:08)
[2017-10-14] MEDS: HYDROcodone/ACETAMIN 5-325 MG* 1 TAB PO PRN ×3 (03:20→12:42)
[2017-10-14] MEDS ORDERED: Vancomycin Trough Check NOTE FOLLOW UP ONE (05:30)
[2017-10-14] MEDS: Heparin VIAL(*) 5000 UNITS/ML VIAL (FIVE THOUSAND) SUBCUT SCH ×2 (06:13→12:37)
[2017-10-14 06:47] LABS: ABS Basophils 0 10^3/ul (0-0.2); ABS Eosinophils 0.3 10^3/ul (0-0.6); ABS Lymphocytes 3.2 10^3/ul (1.0-4.8); ABS Monocytes 1.2 10^3/ul (0-0.8); ABS Neutrophils 10.4 10^3/ul (1.5-7.7); ABS Nucleated RBC 0.01 10^3/ul; Eosinophil % 1.8 % (0-6); Hematocrit 33 % (42-52); Hemoglobin 11.2 g/dl (14.0-18.0); Lymphocyte % 21.2 % (25-47); Mean Corpuscular HGB Conc 34 g/dl (31-36); Mean Corpuscular Hemoglobin 31 pg (27-31); Mean Corpuscular Volume 91 fL (80-94); Mean Platelet Volume 9 um3 (7.4-10.4); Nucleated Red Blood Cells % 0; Platelet Count 187 10^3/ul (150-450); Red Blood Count 3.66 10^6/ul (4.0-5.4); Red Cell Distribution Width 13 % (10.5-15); White Blood Count 15.1 10^3/ul (3.5-10.8)
[2017-10-14 07:16] LABS: EGFR Non-African American 84.4 (>60)
[2017-10-14] MEDS: Ramipril CAP* 5 MG PO SCH (07:45)
[2017-10-14] MEDS: Tamsulosin CAP* 0.4 MG PO SCH (07:45)
[2017-10-14] MEDS: Finasteride TAB* 5 MG PO SCH (07:45)
[2017-10-14] MEDS: Atorvastatin* 80 MG TAB PO SCH (07:45)
[2017-10-14] MEDS: Omeprazole CAP* 20 MG PO SCH (07:45)
[2017-10-14] MEDS: Sertraline* 50 MG TAB PO SCH (07:45)
--- NOTE | 2017-10-14 09:45 | PN ---
Progress Note - Progress Note Date of Service: 10/14/17 SOAP: Subjective: Patient still has left hip pain partially c/w narcotics. Objective: Non-toxic appearing. Comfortable-appearing. NAD. LLE: - PROM 0-100 flexion, 10 external rotation, at least 30 internal rotation. Significant pain with passive external rotation. - NVID - hip-area warm, no significant swelling or TTP Microbiology 10/12/17 14:40 Joint Fluid(Synovial) - Hip Left Gram Stain - Final 10/12/17 10:40 Blood Venous Aerobic Blood Culture - Preliminary 10/12/17 10:40 Blood Venous Anaerobic Blood Culture - Preliminary Strep Agalactiae - (Group B) Selected Entries 10/13/17 10/14/17 17:43 07:36 Temperature 101.4 F 98.4 F Pulse Rate 71 Respiratory 18 Rate Blood Pressure 146/64 (mmHg) O2 Sat by Pulse 95 Oximetry Laboratory Tests 10/12/17 10/13/17 10/14/17 10:40 06:07 06:17 WBC 18.0 H 14.1 H 15.1 H Neut % (Auto) 68.0 67.5 69.1 x-rays- hardware in place, no clear periprosthetic fracture or loosening hardware Assessment: HD 3 presumptive left CRISTAL infection UTI Plan: - Patient's CRISTAL was for acetabulum [facility] [place] [address] [facility] [place] [facility] - Atypical joint replacement in that the liner was cemented into the cup, making poly liner removal significantly more difficult. Liner removal is generally recommended for infected joints. [place] [facility] [place] is there experience here in cementing liners into cups. For these reasons and because Dr. Mckay was the original surgeon , it makes sense to transfer the patient to [place]. - I discussed with the patient and his a washout by me today versus a transfer to [place] for treatment by Dr. Mckay. They deferred to my judgment and availability of Dr. Mckay. - I spoke with the ortho surgeon on-call at [place]. He will I&D the patient this weekend (today or tomorrow morning) without poly exchange and then defer to treatment by Dr. Mckay on Monday with regards to further washouts or IV antibiotics alone. - Unusual that aspirate NGTD, but infection of presumptive infection left CRISTAL - Continue Ceftriaxone and Vancomycin - Transfer to [place]. Hospitalist to Hospitalist transfer with ortho surgery aware and expecting.
[2017-10-14] MEDS: Morphine INJ* 2 MG/ML 1 ML SYRINGE (TWO MG - NEW SYRINGE VERSION) IV PRN ×2 (09:48→14:12)
--- NOTE | 2017-10-14 11:29 | PN ---
Subjective Date of Service: 10/14/17 Interval History: Continues to c/o left hip pain even with pain management. Denies chest pain. Denies shortness of breath. Denies nausea, vomiting or diarrhea. Denies any urinary symptoms. Family History: Unchanged from Admission Social History: Unchanged from Admission Past Medical History: Unchanged from Admission Objective Active Medications: Acetaminophen (Tylenol Tab*) 650 mg PO Q4H PRN PRN Reason: FEVER/PAIN Last Admin: 10/13/17 18:02 Dose: 650 mg Hydrocodone Bitart/Acetaminophen ([place] 5-325 Tab*) 1 tab PO Q4H PRN PRN Reason: PAIN Last Admin: 10/14/17 07:45 Dose: 1 tab Al Hydrox/Mg Hydrox/Simethicone (Maalox Plus*) 30 ml PO Q6H PRN PRN Reason: INDIGESTION Atorvastatin Calcium (Lipitor*) 80 mg PO DAILY [facility] Last Admin: 10/14/17 07:45 Dose: 80 mg Finasteride (Proscar Tab*) 5 mg PO DAILY [facility] Last Admin: 10/14/17 07:45 Dose: 5 mg Heparin Sodium (Porcine) (Heparin Vial(*)) 5,000 units SUBCUT Q8HR [facility] Last Admin: 10/14/17 06:13 Dose: Not Given Sodium Chloride (Ns 0.9% 1000 Ml*) 1,000 mls @ 75 mls/hr IV PER RATE [facility] Last Admin: 10/13/17 18:08 Dose: 75 mls/hr Ceftriaxone Sodium 2 gm/ (Sodium Chloride) 100 mls @ 200 mls/hr IVPB Q24H [facility] Last Admin: 10/13/17 18:01 Dose: 200 mls/hr Morphine Sulfate (Morphine Inj (Syringe)*) 2 mg IV Q4H PRN PRN Reason: PAIN - MILD Last Admin: 10/14/17 09:48 Dose: 2 mg Omeprazole (Prilosec Cap*) 20 mg PO BID [facility] Last Admin: 10/14/17 07:45 Dose: 20 mg Ondansetron HCl (Zofran Inj*) 4 mg IV Q4H PRN PRN Reason: NAUSEA/VOMITING Ramipril (Altace Cap*) 5 mg PO DAILY [facility] Last Admin: 10/14/17 07:45 Dose: 5 mg Sertraline HCl (Zoloft*) 50 mg PO DAILY [facility] Last Admin: 10/14/17 07:45 Dose: 50 mg Tamsulosin HCl (Flomax Cap*) 0.4 mg PO DAILY [facility] Last Admin: 10/14/17 07:45 Dose: 0.4 mg Vital Signs - 8 hr 10/14/17 10/14/17 10/14/17 07:36 07:45 07:51 Temperature 98.4 F Pulse Rate 71 Respiratory 18 18 18 Rate Blood Pressure 146/64 (mmHg) O2 Sat by Pulse 95 Oximetry 10/14/17 09:48 Temperature Pulse Rate Respiratory 18 Rate Blood Pressure (mmHg) O2 Sat by Pulse Oximetry Oxygen Devices in Use Now: None Appearance: Awake and alert, Appears uncomfortable resting in the bed. Eyes: No Scleral Icterus, PERRLA Ears/Nose/Mouth/Throat: NL Teeth, Lips, Gums, Clear Oropharnyx, Mucous Membranes Moist Neck: NL Appearance and Movements; NL JVP, Trachea Midline Respiratory: Symmetrical Chest Expansion and Respiratory Effort, Clear to Auscultation Cardiovascular: NL Sounds; No Murmurs; No JVD, No Edema Abdominal: NL Sounds; No Tenderness; No Distention Extremities: No Edema, No Clubbing, Cyanosis, - Skin: No Rash or Ulcers, - - No redness noted to left hip Neurological: Alert and Oriented x 3, NL Sensation Result Diagrams: 10/14/17 06:17 10/14/17 06:17 Additional Lab and Data: Lab Results 10/12/17 10/12/17 10/12/17 Range/Units 10:40 10:40 10:40 WBC 18.0 H (3.5-10.8) 10^3/ul RBC 4.17 (4.0-5.4) 10^6/ul Hgb 12.8 L (14.0-18.0) g/dl Hct 38 L (42-52) % MCV 91 (80-94) fL MCH 31 (27-31) pg MCHC 34 (31-36) g/dl RDW 13 (10.5-15) % Plt Count 190 (150-450) 10^3/ul MPV 9 (7.4-10.4) um3 Neut % (Auto) 68.0 (38-83) % Lymph % (Auto) 20.3 L (25-47) % [place] % (Auto) 11.5 H (1-9) % Eos % (Auto) 0.1 (0-6) % Baso % (Auto) 0.1 (0-2) % Absolute Neuts (auto) 12.2 H (1.5-7.7) 10^3/ul Absolute Lymphs (auto) 3.6 (1.0-4.8) 10^3/ul Absolute Monos (auto) 2.1 H (0-0.8) 10^3/ul Absolute Eos (auto) 0 (0-0.6) 10^3/ul Absolute Basos (auto) 0 (0-0.2) 10^3/ul Absolute Nucleated RBC 0.02 10^3/ul Nucleated RBC % 0.1 Sodium 134 (133-145) mmol/L Potassium 4.0 (3.5-5.0) mmol/L Chloride 101 (101-111) mmol/L Carbon Dioxide 28 (22-32) mmol/L Anion Gap 5 (2-11) mmol/L BUN 17 (6-24) mg/dL Creatinine 1.07 (0.67-1.17) mg/dL Est GFR ( Amer) 86.6 (>60) Est GFR (Non-Af Amer) 67.4 (>60) BUN/Creatinine Ratio 15.9 (8-20) Glucose 122 H (70-100) mg/dL Lactic Acid 1.1 (0.5-2.0) mmol/L Calcium 9.8 (8.6-10.3) mg/dL Total Bilirubin 0.80 (0.2-1.0) mg/dL AST 17 (13-39) U/L ALT 15 (7-52) U/L Alkaline Phosphatase 73 (34-104) U/L C-Reactive Protein 186.60 H (< 5.00) mg/L Total Protein 7.1 (6.4-8.9) g/dL Albumin 3.7 (3.2-5.2) g/dL Globulin 3.4 (2-4) g/dL Albumin/Globulin Ratio 1.1 (1-3) Lipase 22 (11.0-82.0) U/L Microbiology and Other Data: Microbiology 10/12/17 16:45 Influenza Types A,B Antigen (JOAN) - Final Nasal Specimen received for Influenza A/B Molecular testing Assess/Plan/Problems-Billing Assessment: This is a 77 y.o male with a 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 Presented to the emergency room after a 2 day history of fevers and progressively worsening left hip pain and decreased ability to ambulate. - Patient Problems (1) Septic joint Comment: Will continue ceftriaxone 2 grams IVPB will trend CBC WBC increasing, CRP remains elevated Orthopedic is consulted will transfer to [facility]. Blood cultures 4 out of 4 bottles positive for group B strep Urine Culture also positive for group B strep Consult from ID pending Controll pain continue to have intermitten pain even with pain mangement (2) Hypertension Code(s): I10 - ESSENTIAL (PRIMARY) HYPERTENSION SNOMED Code(s): 03466188 Comment: Continue on Ramipril monitor vital signs Heart healthy diet (3) Leucocytosis Code(s): D72.829 - ELEVATED WHITE BLOOD CELL COUNT, UNSPECIFIED SNOMED Code(s) : 445663346 Comment: Stable Suspect this is related to left hip septic Joint Will continue on Ceftriaxone to cover group B strep Will stop Vancomycin Will trend CBC- WBC are increasing CRP continues to be elevated Blood cultures and urince culture positive for group B strep (4) Depression Code(s): F32.9 - MAJOR DEPRESSIVE DISORDER, SINGLE EPISODE, UNSPECIFIED SNOMED Code(s): 48127738 Comment: Will continue on Zoloft provide supportive care as needed (5) DVT prophylaxis Current Visit: Yes Status: Acute Code(s): WXO8240 - SNOMED Code(s): 303966946 Comment: Heparin Subq ambulate as tolerated (6) Urinary tract infection Current Visit: Yes Status: Acute Comment: Culture is positive for group B strep Will continue on ceftriaxone 2 grams IVPB Status and Disposition: Transfer to [facility] accepting MD Dr. Esposito (hospitalist)/ Orthopedic consult at [facility] is Dr. Snyder.
--- NOTE | 2017-10-14 12:41 | DS ---
AMENDED REPORT NOW INCLUDES COSIGNER DESIGNATION - ESIGNED BEFORE ADJUSTMENTS CC: Dr. Esquivel * DISCHARGE/TRANSFER SUMMARY: DATE OF ADMISSION: 10/12/17 DATE OF TRANSFER: 10/14/17 PROVIDER: Kavitha Hussein NP. ATTENDING PHYSICIAN: Dr. Cynthia Freire * (report dictated by Kavitha Hussein NP). PRIMARY CARE PROVIDER: Dr. Fred Esquivel. PRIMARY DIAGNOSES: 1. Fever. 2. Septic arthritis of the left hip. SECONDARY DIAGNOSES: Significant for: 1. High cholesterol. 2. Depression. 3. Hypertension. 4. Gastroesophageal reflux disease. 5. Enlarged prostate. STUDIES WHILE IN THE HOSPITAL: There was a hip x-ray on 10/12/17. This is a hip and pelvis. Impression: Punctate metallic densities at the level of the prosthetic hip and surrounding soft tissues, suspicious for abnormal prosthetic wear. He also had a left femur x-ray on 10/12/17, which showed negative for left femur fracture or suspicious focal osteo lesions. He did have a joint aspiration of the left hip. Impression: 1. There was no sonographic evidence of left-sided joint effusion. 2. After needle aspirate yielded no joint fluids, saline was injected and approximately 3 mL was rapidly aspirated back out. This was mildly turbid fluid and was sent to laboratory for analysis. Chest x-ray was also done on 10/12/17. Chest x-ray, radiologist's impression: No evidence of acute findings. A transthoracic echocardiogram was done on 10/13/17. Conclusion of the echocardiogram: [id number] concentric left ventricular hypertrophy was observed. Global left ventricular wall motion and contractility within normal limits and ejection fraction was 55% to 60%. Right ventricular global systolic function is normal. There is trace aortic regurgitation. There is trace mitral regurgitation. There is mild tricuspid regurgitation. The right ventricular systolic pressure is estimated at 28. There are no vegetations. MEDICATIONS WHILE IN THE HOSPITAL: 1. Ceftriaxone 2 g IV daily. 2. He also did receive 2 doses of vancomycin, first dose was 1750 mg, second dose was 1000 mg. 3. For pain control, he was receiving morphine 2 mg q.4 hours as needed for pain. 4. He also was placed on hydrocodone 5/325, one tablet every 4 hours as needed for pain. Home medications that were continued during his hospital stay: 1. Atorvastatin 80 mg p.o. daily. 2. Proscar 5 mg p.o. daily. 3. Prilosec 20 mg p.o. b.i.d. 4. Ramipril 5 mg p.o. daily. 5. Zoloft 50 mg p.o. daily. 6. Flomax 0.4 mg p.o. daily. HISTORY OF PRESENT ILLNESS: Mr. Rodriguez is a 77-year-old male that presented to the emergency room after a 2-day history of fevers and left hip pain. He is a status post left hip replacement in 2010 after a traumatic fall of approximately 15 feet. He had his hip replaced at [facility] by Dr. Mckay. He reported that 2 days prior to his admission to the ER, he developed a fever between 101 and 102 and severe left hip pain. The patient states that he is normally active and ambulates without assistance and on Monday he had to ambulate with a cane and by Monday he was ambulating with a wheeled walker due to the increased left hip pain. He does state that on Monday he did fall on a padded carpet, but denied any injuries. Denied loss of consciousness. He reports that the pain is sharp and has increased pain with movement and ambulation. He does report that he has chronic problems with urination and does report some increased frequency, but denies any other symptoms. He denies any sensory loss or weakness. He denied any chest pain, nausea, vomiting, or diarrhea. While in the emergency room, routine lab work was drawn. He was found to be in leukocytosis with a white count of 18,000. He did receive Toradol 30 mg and morphine 4 mg x2 for the pain without relief. He was also started on vancomycin. His first dose was 1750 mg and received a dose of Zosyn in the emergency room. Blood cultures showed 4/4 bottles positive for strep B. While in the hospital, he was monitored on telemetry with no significant findings. We continued to trend his CBC. His white count was originally 18,000 on 10/12/17. On 10/14/17, his white count was 15.1. His glucose today was 108. C-reactive protein remains elevated at 187.11. We have continued him on ceftriaxone 2 g IV daily. The vancomycin was discontinued. I suspect the leukocytosis is related to the septic arthritis of the left hip. Orthopedic consult was obtained during his stay and they agree with that assessment. Mr. Rodriguez was seen by Dr. Mendez from orthopedics . Please refer to his dictated consult for full details. During the hospital stay, we managed his pain with hydrocodone and morphine. He has significant amount of pain in his left hip with movement of his left leg. Pedal pulses are +2 bilaterally. There is no swelling, redness, or edema noted to that leg or hip area. There are no open skin lesions. His urine culture is also positive for strep B and again 4/4 blood cultures are also positive for group B strep. He did have influenza swab done for A and B, which was negative. Orthopedic surgeon has recommended that the patient be transferred to [facility] for advanced orthopedic care. He did talk to Dr. Snyder at [facility] who agreed to take the patient in consult. Mr. Rodriguez is stable for transfer at this time to [facility]. Vital signs are as follows: Temp was 98.4, heart rate is 71, respirations are 18, O2 saturation is 95% on room air, blood pressure is 146/64. TRANSFER PLAN: Mr. Rodriguez will be transferred to [facility]. I have spoken to Dr. Esposito, who has kindly accepted the transfer of Mr. Rodriguez for his advanced orthopedic care. He will be transferred to [facility] via ambulance. This is a summarized report, please refer to printed medical history and hospital stay for further details. TIME SPENT: Time spent on this discharge/transfer was approximately 60 minutes , greater than half the time was spent with the patient discussing his transfer. CONDITION AT DISCHARGE: Stable. KAVITHA HUSSEIN, PRESS CATCHER [id number]/CPS #: [id number] KENRICK
[2017-10-14 14:44] VITALS: BP 151/58
== END 2017-10-14 14:40 | disposition short-term general hospital (02) | DRG 560 ==
LOC: ED 09:29 → MED 13:04
PROVIDERS: ADMIT Hospitalist; ATTEND Internal Medicine
PROC: 0S9G3ZX Drainage of Left Ankle Joint, Percutaneous Approach, Diagnostic (ICD-10-PCS; principal; 2017-10-12)
DX: T84.52XA Infection and inflammatory reaction due to internal left hip prosthesis, initial encounter (principal); N39.0 Urinary tract infection, site not specified; R78.81 Bacteremia; I08.3 Combined rheumatic disorders of mitral, aortic and tricuspid valves; E78.00 Pure hypercholesterolemia, unspecified; Y79.2 Prosthetic and other implants, materials and accessory orthopedic devices associated with adverse incidents; F32.9 Major depressive disorder, single episode, unspecified; I10 Essential (primary) hypertension; K21.9 Gastro-esophageal reflux disease without esophagitis; W18.30XA Fall on same level, unspecified, initial encounter; N40.1 Benign prostatic hyperplasia with lower urinary tract symptoms; R35.0 Frequency of micturition; R40.2412 Glasgow coma scale score 13-15, at arrival to emergency department; B95.1 Streptococcus, group B, as the cause of diseases classified elsewhere; Y92.9 Unspecified place or not applicable; Y92.009 Unspecified place in unspecified non-institutional (private) residence as the place of occurrence of the external cause; Z95.5 Presence of coronary angioplasty implant and graft; Z82.49 Family history of ischemic heart disease and other diseases of the circulatory system; Z80.0 Family history of malignant neoplasm of digestive organs; Z87.891 Personal history of nicotine dependence
CPT/HCPCS: 36415; 71020; 80048; 80053; 80202; 81003; 81015; 83605; 83690; 85025; 86140; 86618; 87040; 87070; 87077; 87086; 87186; 87205; 87502; 88173; 93306; A9270-GY; J0696; J1644; J1885; J2270; J2405; J2543; J3370

== ENCOUNTER 2023-11-15 09:43 | Observation (INO) ==
[~2023-11-15 09:43] MED LIST: Buffered Lidocaine 1% SYRIN 1 ml INTRADERM ONE; Lactated Ringers 1000 ml BAG 1,000 ML IV SCH; Scopolamine 1 mg/72hr PATCH TRANSDERM ONE
[2023-11-15] MEDS ORDERED: Ondansetron 4 mg VIAL 2 MG/ML 2 ml VIAL ONE (10:31)
[2023-11-15] MEDS ORDERED: Lidocaine 2% PF 5 ML VIAL ONE (10:31)
[2023-11-15] MEDS ORDERED: Dexamethasone IV 4 MG/ML VIAL 1 ml VIAL ONE (10:31)
[2023-11-15] MEDS ORDERED: fentaNYL 100 mcg/2 ml 50 MCG/ML VIAL ONE (10:31)
[2023-11-15] MEDS ORDERED: Propofol 10 MG/ML 20 ML BTL ONE (10:31)
[2023-11-15] MEDS ORDERED: Rocuronium 50 mg VIAL 10 mg/ml 5 ml VIAL (50 mg) ONE ×2 (10:31→13:55)
[2023-11-15] MEDS ORDERED: Scopolamine 1 mg/72hr PATCH ONE (10:32)
[2023-11-15] MEDS ORDERED: Chlorhexidine MOUTHWASH 0.12% 15 ML UDC ONE (10:33)
[2023-11-15] MEDS ORDERED: ceFAZolin 2 GM PREMIX 2 GM/50 ML BAG ONE (10:33)
[2023-11-15 11:04] LABS: Rapid COVID-19 Molecular Undetected (Undetected)
[2023-11-15] MEDS ORDERED: ceFAZolin VIAL VIAL ONE (11:53)
[2023-11-15] MEDS ORDERED: Thrombin 5,000 UNITS(BOVINE) for Ultrasound Guided Pseudoaneursym ONE (11:53)
[2023-11-15] MEDS ORDERED: Lidocaine 1% w EPI 1:100,000 MDV 20 ML VIAL ONE (11:53)
[2023-11-15] MEDS ORDERED: Gelfoam Sponge SIZE 100 SPONGE ONE (11:54)
[2023-11-15] MEDS ORDERED: Benzocaine/Menthol LOZ MT PRN (15:20)
[2023-11-15] MEDS ORDERED: Phenol 1.4% Throat Spray BTL MT PRN (15:20)
[2023-11-15] MEDS ORDERED: Magnesium Hydroxide LIQ 30 ML UDC PO PRN (15:20)
[2023-11-15] MEDS ORDERED: Senna TAB 8.6 mg TAB PO PRN (15:20)
[2023-11-15] MEDS ORDERED: Ondansetron 4 mg VIAL 2 MG/ML 2 ml VIAL IV PRN (15:20)
[2023-11-15] MEDS ORDERED: Dextran 70/Hypromellose Tears Eye Drops 15 ml BTL (for Artificials Tears) BOTH EYES PRN (15:20)
[2023-11-15] MEDS ORDERED: HYDROcodone/ACETAMIN 5/325 mg TAB PO PRN (15:20)
[2023-11-15] MEDS ORDERED: Calcium Carb (TUMS) 500 mg CHEW TAB PO PRN (15:20)
[2023-11-15] MEDS ORDERED: Morphine 2 MG/ML SYRINGE IV PRN (15:20)
[2023-11-15] MEDS ORDERED: Lactated Ringers 1000 ml BAG 1,000 ML IV SCH (16:00)
[2023-11-15] MEDS ORDERED: hydrALAZINE 20 mg/ml 1 ML Vial IV ONE (16:07)
[2023-11-15] MEDS: hydrALAZINE 20 mg/ml 1 ML Vial IV IV SLOW PU PRN ×2 (16:11→16:23)
[2023-11-16] MEDS: buPROPion SR 100 mg TAB.SR PO SCH (09:31)
[2023-11-16] MEDS: HYDROcodone/ACETAMIN 5/325 mg TAB PO PRN ×2 (09:40→15:58)
[2023-11-17] MEDS: HYDROcodone/ACETAMIN 5/325 mg TAB PO PRN (03:43)
[2023-11-17] MEDS: buPROPion SR 100 mg TAB.SR PO SCH (08:58)
[2023-11-17 10:10] VITALS: BP 140/62
== END 2023-11-17 13:00 | disposition home or self-care (01) ==
LOC: OR 09:43 → SSU 09:43
PROVIDERS: ADMIT Neurological Surgery; ATTEND Neurological Surgery